=== PATIENT | female | born 1985 ===

== ENCOUNTER 2018-05-10 11:38 | Emergency (ER) | payer OTHER ==
[2018-05-10 12:09] VITALS: BP 114/78
--- NOTE | 2018-05-10 12:18 | UC ---
Back Pain HPI - HPI Summary HPI Summary: 33 yo female presents with back pain. She tells me that this morning she woke up and went to turn to get out of bed and felt a pull in her upper/mid back. She tried to lay flat on the floor to stretch out, but pain persisted. Worse with movement. She has not taken anything for her discomfort. She is most concerned because she has a hx of BRCA and tells me that during one of her MRIs they mentioned she had a lesion on T7 that, they think, is benign. Her pain is right around this area today. She denies radiation of pain, numbness, tingling, headache, dizziness, SOB, chest pain. - History of Current Complaint Chief Complaint: UCBackPain Stated Complaint: BACK PAIN Time Seen by Provider: 05/10/18 12:17 Hx Obtained From: Patient Hx Last Menstrual Period: 05/02/12 Onset/Duration: Sudden Onset Severity Initially: Moderate Severity Currently: Moderate Pain Intensity: 8 Pain Scale Used: 0-10 Numeric - Allergies/Home Medications Allergies/Adverse Reactions: Allergies Allergy/AdvReac Type Severity Reaction Status Date / Time mesalamine [From Asacol] Allergy Severe dyspnea Verified 05/10/18 12:10 amoxicillin Allergy Intermediate Hives Verified 05/10/18 12:10 Home Medications: Home Medications Anastrozole (NF) [Arimidex (NF)] 1 mg PO DAILY 05/10/18 [History Confirmed 05/10] PMH/Surg Hx/FS Hx/Imm Hx - Additional Past Medical History Additional PMH: BRCA - Surgical History Surgical History: Yes Surgery Procedure, Year, and Place: R lumpectomy. L oophrectomy. D&C. Double mastectomy - Family History Known Family History: Positive: None - Social History Occupation: Employed Part-time Lives: With Family Alcohol Use: None Substance Use Type: None Smoking Status (MU): Never Smoked Tobacco Review of Systems Constitutional: Negative Skin: Negative Respiratory: Negative Cardiovascular: Negative Gastrointestinal: Negative Neurovascular: Negative Musculoskeletal: Other: - Mid back pain Neurological: Negative Psychological: Negative All Other Systems Reviewed And Are Negative: Yes Physical Exam - Summary Physical Exam Summary: GENERAL: NAD. WDWN. No pain distress. SKIN: No rashes, sores, lesions, or open wounds. NECK: Supple. FROM. Nontender. No lymphadenopathy. CHEST: CTAB. No r/r/w. No accessory muscle use. Breathing comfortably and in no distress. CV: RRR. Without m/r/g. Pulses intact. Cap refill <2seconds MSK: TTP over mid trapezius muscle. No vertebral point tenderness. Pain with flexion and extension of spine and when flexing/extending neck. Strength 5/5 B/ L UEs with FROM, but pain with adduction and abduction. NEURO: Alert. Sensations intact B/L UEs C4-T1 PSYCH: Age appropriate behavior. Triage Information Reviewed: Yes Vital Signs: Initial Vital Signs Temp 97.6 F 05/10/18 12:03 Pulse 91 05/10/18 12:03 Resp 18 05/10/18 12:03 BP 114/78 05/10/18 12:03 Pulse Ox 100 05/10/18 12:03 Vital Signs Reviewed: Yes Back Pain Course/Dx - Course Course Of Treatment: CT: IMPRESSION: 1. SCOLIOSIS. 2. MILD DEGENERATIVE DISC DISEASE. 3. NO FOCAL LYTIC OR SCLEROTIC LESIONS. A CT ABDOMEN CORRESPOND A HISTORY OF LESION OF. THE T7 VERTEBRAL BODY. RECOMMEND COMPARISON TO OUTSIDE IMAGING AND/OR CONSIDERATION OF. FURTHER EVALUATION WITH CONTRAST ENHANCED MRI OF THE SPINE IN THE NONACUTE SETTING. Suspect muscle spasm. Advised to apply heat and take ibuprofen for her discomfort. F/u if her symptoms persist or worsen. - Differential Dx/Diagnosis Provider Diagnoses: Trapezius muscle spasm Discharge - Sign-Out/Discharge Documenting (check all that apply): Patient Departure All imaging exams completed and their final reports reviewed: Yes - Discharge Plan Condition: Stable Disposition: HOME Patient Education Materials: Muscle Spasm (ED) Referrals: Javier Stack MD [Primary Care Provider] - If Needed Additional Instructions: If you develop a fever, shortness of breath, chest pain, new or worsening symptoms - please call your PCP or go to the ED. 1) Rest and apply heat to the area. 2) May take ibuprofen for pain - Billing Disposition and Condition Condition: STABLE Disposition: Home
--- NOTE | 2018-05-10 12:53 | RAD ---
HISTORY: Pain. Hx of cancer and lesion to T7 COMPARISONS: None available for comparison, dictation. TECHNIQUE: Multiple contiguous axial CT scans were obtained of the thoracic spine without intravenous contrast, with coronal and sagittal multiplanar reformations. FINDINGS: SPINAL CANAL: Evaluation of the central canal is limited on CT technique; however, there is no obvious canalicular mass or epidural hemorrhage. ALIGNMENT: There is mild levoscoliotic curvature of the spine. VERTEBRAL BODIES: There is mild anterolateral marginal osteophyte formation. The vertebral bodies preserved in height. There are no focal lytic or sclerotic lesions. There is no CT abnormality at T7 to correspond to the clinical history. JOINTS: There is no subluxation or dislocation. MUSCULATURE: Unremarkable INTERVERTEBRAL DISCS: There is mild diffuse loss of intervertebral disc height throughout the spine. AXIAL IMAGES: There is no osseous central canal stenosis or neuroforaminal narrowing. SOFT TISSUES: The visualized soft tissues of the chest and abdomen are unremarkable. OTHER: None IMPRESSION: 1. SCOLIOSIS. 2. MILD DEGENERATIVE DISC DISEASE. 3. NO FOCAL LYTIC OR SCLEROTIC LESIONS. A CT ABDOMEN CORRESPOND A HISTORY OF LESION OF THE T7 VERTEBRAL BODY. RECOMMEND COMPARISON TO OUTSIDE IMAGING AND/OR CONSIDERATION OF FURTHER EVALUATION WITH CONTRAST ENHANCED MRI OF THE SPINE IN THE NONACUTE SETTING
== END 2018-05-10 13:06 | disposition home or self-care (01) ==
LOC: UCCORT 11:38
DX: M62.838 Other muscle spasm (principal); Z88.1 Allergy status to other antibiotic agents; Z88.6 Allergy status to analgesic agent; Z79.811 Long term (current) use of aromatase inhibitors; Z90.13 Acquired absence of bilateral breasts and nipples; Z15.01 Genetic susceptibility to malignant neoplasm of breast
CPT/HCPCS: 72128; 99211; G0463